=== PATIENT | female | born 1990 | race American Indian/Alaskan Native ===

== ENCOUNTER 2017-01-29 21:21 | Emergency (ER) | payer OTHER ==
[2017-01-29 21:43] VITALS: BP 126/80
[2017-01-29] MEDS ORDERED: PROVENTIL IH ONE (21:47)
--- NOTE | 2017-01-30 01:02 | Emergency Department Report ---
HPI - General Chief Complaint: Adult Asthma Time Seen by Provider: 01/30/17 00:41 - HPI HPI: 26-year-old female presents today complaining of chest heaviness, shortness of breath that occurred at 0700 hrs. yesterday. Patient has history of asthma and states that this felt like her normal asthma exacerbation. Patient was given neb treatments in triage and reports symptomatic relief post medication. Denies fever, chills, nausea, vomiting, chest pain, shortness of breath, abdominal pain at this time. ED Past Medical Hx - Past Medical History Previous Medical History?: Yes Hx Asthma: Yes - Surgical History Past Surgical History?: Yes Additional Surgical History: - Social History Smoking Status: Never Smoker Substance Use Type: None - Medications Home Medications: Home Medications Medication Instructions Recorded Confirmed Last Taken Type Prednisone 20 mg PO QDAY #3 tablet 10/14/13 Unknown Rx Azithromycin [Zithromax Z-HORTENCIA] 250 mg PO DAILY #6 tablet 11/03/14 Unknown Rx Ibuprofen [Motrin] 600 mg PO Q8H PRN #30 tablet 02/24/15 Unknown Rx metroNIDAZOLE [Flagyl] 500 mg PO BID #20 tablet 02/24/15 Unknown Rx Pseudoephed/Cod/Guaifen 5 ml PO Q6H #1 bottle 08/13/15 Unknown Rx [Robitussin DAC 10-100-30Mg/5Ml] Azithromycin [Zithromax Z-HORTENCIA] 250 mg PO DAILY #6 tab 09/15/15 Unknown Rx Promethazine Dm [Phenergan Dm 5 ml PO Q6H PRN #120 ml 09/15/15 Unknown Rx 6.25/15 mg 5 ml] metroNIDAZOLE 0.75% [Vandazole 1 applicator VG QHS #1 tube 11/20/15 Unknown Rx 0.75% VAGINAL] Acetaminophen/Codeine [Tylenol 1 tab PO Q6H PRN #20 tab 11/29/15 Unknown Rx /Codeine # 3 tab] Nitrofurantoin [place]/M-Cryst 100 mg PO Q12HR #14 capsule 11/29/15 Unknown Rx [Macrobid CAP] Vit No.130/Iron/FA 1 each PO QDAY #30 tablet 11/29/15 Unknown Rx [ Tablet] ALBUTEROL Inhaler [ProAir HFA 2 puff IH QID PRN #1 inhalation 01/30/17 Unknown Rx Inhaler] Albuterol Sulfate [Albuterol 0.63% 0.63 mg IH Q4H PRN #25 neb 01/30/17 Unknown Rx NEBS] predniSONE [Deltasone] 20 mg PO TID #12 tab 01/30/17 Unknown Rx ED Review of Systems ROS: Stated complaint: ASTHMA Other details as noted in HPI Constitutional: denies: chills, fever, malaise Eyes: denies: eye pain ENT: denies: ear pain, throat pain, congestion Respiratory: shortness of breath, wheezing. denies: cough Cardiovascular: chest pain. denies: palpitations Endocrine: no symptoms reported Gastrointestinal: denies: abdominal pain, nausea, vomiting Neurological: denies: headache, weakness Physical Exam - Physical Exam Vital Signs: Vital Signs 01/29/17 01/29/17 01/29/17 21:36 21:51 22:01 Temperature 98.5 F Pulse Rate 95 H Pulse Rate [ 92 H 94 H Posterior Right Throughout] Respiratory 18 Rate Respiratory 16 18 Rate [Posterior Right Throughout] Blood Pressure 126/80 O2 Sat by Pulse 100 Oximetry Physical Exam: GENERAL: The patient is well-developed and well-nourished. Patient is in NAD. HEAD: Normocephalic. Atraumatic. EYES: PERRL. NOSE: Normal nasal mucosa with no nasal discharge. THROAT: No erythema, swelling or exudates. NECK: Supple, nontender, without lymphadenopathy. CHEST/LUNGS: Clear to auscultation throughout. No wheezing noted. HEART/CARDIOVASCULAR: Regular rate and rhythm. No murmurs, rubs or gallops. ABDOMEN: Abdomen is soft, nontender. Bowel sounds normoactive. No guarding or rebound tenderness. EXTREMITIES: Peripheral pulses intact. Capillary refill less than 2 seconds. NEURO: Alert and oriented x 3. Normal gait. ED Course Vital Signs 01/29/17 01/29/17 01/29/17 21:36 21:51 22:01 Temperature 98.5 F Pulse Rate 95 H Pulse Rate [ 92 H 94 H Posterior Right Throughout] Respiratory 18 Rate Respiratory 16 18 Rate [Posterior Right Throughout] Blood Pressure 126/80 O2 Sat by Pulse 100 Oximetry ED Medical Decision Making - Lab Data Vital Signs 01/29/17 01/29/17 01/29/17 21:36 21:51 22:01 Temperature 98.5 F Pulse Rate 95 H Pulse Rate [ 92 H 94 H Posterior Right Throughout] Respiratory 18 Rate Respiratory 16 18 Rate [Posterior Right Throughout] Blood Pressure 126/80 O2 Sat by Pulse 100 Oximetry - Medical Decision Making 26-year-old female presents today post asthma exacerbation. Patient admits to symptomatic relief post medication. Patient is in no acute distress at this time. She will be discharged home and is encouraged to follow up with a primary care provider. She will be sent home on albuterol neb treatment, albuterol inhaler and prednisone and is encouraged to return to the emergency room for any worsening symptoms. Critical care attestation.: If time is entered above; I have spent that time in minutes in the direct care of this critically ill patient, excluding procedure time. ED Disposition Clinical Impression: Asthma exacerbation Disposition: DISCHARGED TO HOME OR SELFCARE Is pt being admited?: No Does the pt Need Aspirin: No Condition: Stable Instructions: Asthma (ED) Additional Instructions: Follow-up with primary care provider. Return to the emergency department if symptoms worsen. Prescriptions: ALBUTEROL Inhaler [ProAir HFA Inhaler] 2 puff IH QID PRN #1 inhalation PRN Reason: Shortness Of Breath Albuterol Sulfate [Albuterol 0.63% NEBS] 0.63 mg IH Q4H PRN #25 neb PRN Reason: Shortness Of Breath predniSONE [Deltasone] 20 mg PO TID #12 tab Referrals: PRIMARY CARE, [Primary Care Provider] - 3-5 Days [facility] [Outside] - 3-5 Days Forms: Work/School Release Form(ED) Time of Disposition: 00:58
== END 2017-01-30 01:15 | disposition home or self-care (01) ==
LOC: ED 21:21
DX: J45.901 Unspecified asthma with (acute) exacerbation (principal)
CPT/HCPCS: 94640

== ENCOUNTER 2017-02-24 22:29 | Emergency (ER) | payer OTHER ==
[2017-02-24 22:52] VITALS: BP 121/80
[2017-02-25] MEDS ORDERED: DUONEB 0.5 MG-3 MG/3 ML SOLN IH ONE ×2 (03:49→05:10)
[2017-02-25] MEDS ORDERED: DECADRON IM ONE (04:48)
--- NOTE | 2017-02-25 05:59 | XRay Report ---
FINAL REPORT PROCEDURE: XR CHEST ROUTINE 2V TECHNIQUE: PA and lateral chest radiographs were obtained. CPT 70153 HISTORY: asthma COMPARISON: No prior studies are available for comparison. FINDINGS: Heart: Normal. Mediastinum/Vessels: Normal. Lungs/Pleural space: Normal. Bony thorax: No acute osseous abnormality. Other: IMPRESSION: Normal examination.
--- NOTE | 2017-02-25 06:37 | Emergency Department Report ---
ED Asthma HPI - General Chief Complaint: Adult Asthma Stated Complaint: ASTHMA/CHEST PAIN/DIZZINESS Source: patient Mode of arrival: Ambulatory Limitations: No Limitations - History of Present Illness Initial Comments: 26 year old female presents to ED with wheezing, chest tightness just prior to arrival. patient has history of asthma and states she is out of her albuterol. patient is stable, neurologically intact and in no acute distress. MD Complaint: "asthma attack", wheezing -: Gradual Asthma History: childhood onset, history of prior ED visit Severity: mild Context: ran out of meds, allergen exposure Associated Symptoms: chest pain (tightness). denies: productive cough, fever, leg edema, syncope - Related Data Current Asthma Therapy: inhaled bronchodilator Previous Rx's Medication Instructions Recorded Last Taken Type ALBUTEROL Inhaler [ProAir HFA 2 puff IH QID PRN #1 inhalation 01/30/17 1 Day Ago Rx Inhaler] Albuterol Sulfate [Albuterol 0.63% 0.63 mg IH Q4H PRN #25 neb 02/25/17 Unknown Rx NEBS] methylPREDNISolone [Medrol] 4 mg PO QDAY #1 tab.ds.pk 02/25/17 Unknown Rx Allergies Allergy/AdvReac Type Severity Reaction Status Date / Time amoxicillin [Amoxicillin] Allergy Swelling Verified 10/14/13 14:56 iodine Allergy Itching Verified 10/14/13 14:56 latex Allergy Hives Verified 10/14/13 14:56 peanut oil Allergy Hives Verified 02/24/17 22:49 seafood Allergy Itching Uncoded 10/14/13 14:56 ED Review of Systems ROS: Stated complaint: ASTHMA/CHEST PAIN/DIZZINESS Other details as noted in HPI Constitutional: denies: chills, fever Eyes: denies: eye pain, eye discharge, vision change ENT: denies: ear pain, throat pain Respiratory: shortness of breath, wheezing. denies: cough Cardiovascular: chest pain (tightness). denies: palpitations Endocrine: no symptoms reported Gastrointestinal: denies: abdominal pain, nausea, diarrhea Genitourinary: denies: urgency, dysuria, discharge Musculoskeletal: denies: back pain, joint swelling, arthralgia Skin: denies: rash, lesions Neurological: denies: headache, weakness, paresthesias Psychiatric: denies: anxiety, depression Hematological/Lymphatic: denies: easy bleeding, easy bruising ED Past Medical Hx - Past Medical History Previous Medical History?: Yes Hx Asthma: Yes - Surgical History Past Surgical History?: Yes Additional Surgical History: - Social History Smoking Status: Never Smoker - Medications Home Medications: Home Medications Medication Instructions Recorded Confirmed Last Taken Type ALBUTEROL Inhaler [ProAir HFA 2 puff IH QID PRN #1 inhalation 01/30/17 02/25/17 1 Day Ago Rx Inhaler] Albuterol Sulfate [Albuterol 0.63% 0.63 mg IH Q4H PRN #25 neb 02/25/17 Unknown Rx NEBS] methylPREDNISolone [Medrol] 4 mg PO QDAY #1 tab.ds.pk 02/25/17 Unknown Rx ED Physical Exam - General Limitations: No Limitations General appearance: alert, in no apparent distress - Head Head exam: Present: atraumatic, normocephalic - Eye Eye exam: Present: normal appearance - ENT ENT exam: Present: mucous membranes moist - Neck Neck exam: Present: normal inspection - Respiratory Respiratory exam: Present: normal lung sounds bilaterally, wheezes, decreased breath sounds - Cardiovascular Cardiovascular Exam: Present: regular rate, normal rhythm. Absent: systolic murmur, diastolic murmur, rubs, gallop - GI/Abdominal GI/Abdominal exam: Present: soft, normal bowel sounds. Absent: distended, tenderness, guarding - Extremities Exam Extremities exam: Present: normal inspection, full ROM - Back Exam Back exam: Present: normal inspection, full ROM - Neurological Exam Neurological exam: Present: alert, oriented X3, normal gait - Psychiatric Psychiatric exam: Present: normal affect, normal mood - Skin Skin exam: Present: warm, dry, intact, normal color. Absent: rash ED Course Vital Signs 02/24/17 22:50 Temperature 98.6 F Pulse Rate 85 Respiratory 18 Rate Blood Pressure 121/80 O2 Sat by Pulse 100 Oximetry ED Medical Decision Making - Lab Data Lab Results 02/25/17 Range/Units 03:45 Urine HCG, Qual Negative (Negative) - Radiology Data Radiology results: report reviewed CXR Normal exam per radiologist. - Medical Decision Making 26 year old female presents to ED with asthma exacerbation. patient has normal breath sounds and no wheezing present after IM steroids and 2 rounds of duoneb breathing treatments. patient states she feels better and denies feeling short of breath or having chest tightness. patient is stable,neurologically intact and in no acute distress. Critical care attestation.: If time is entered above; I have spent that time in minutes in the direct care of this critically ill patient, excluding procedure time. ED Disposition Clinical Impression: Asthma exacerbation Disposition: DISCHARGED TO HOME OR SELFCARE Is pt being admited?: No Does the pt Need Aspirin: No Condition: Stable Instructions: Asthma (ED) Prescriptions: Albuterol Sulfate [Albuterol 0.63% NEBS] 0.63 mg IH Q4H PRN #25 neb PRN Reason: Shortness Of Breath methylPREDNISolone [Medrol] 4 mg PO QDAY #1 tab.ds.pk Referrals: PRIMARY CARE, [Primary Care Provider] - 3-5 Days Forms: Work/School Release Form(ED)
== END 2017-02-25 06:55 | disposition home or self-care (01) ==
LOC: ED 22:29
DX: J45.901 Unspecified asthma with (acute) exacerbation (principal); Z88.1 Allergy status to other antibiotic agents; Z91.040 Latex allergy status; Z91.010 Allergy to peanuts; Z91.013 Allergy to seafood
CPT/HCPCS: 71020; 81025; 94640; 96372; 99283; J1100

== ENCOUNTER 2017-03-09 17:32 | Emergency (ER) | payer OTHER ==
[2017-03-09 17:42] VITALS: BP 119/82
--- NOTE | 2017-03-09 18:34 | Emergency Department Report ---
Entered by ARNULFO CHICAS, acting as scribe for AURELIA GRANADOS PA. Burn HPI - History Stated Complaint: RT ARM BURN Chief Complaint: Burn/Smoke Inhalation Time Seen by Provider: 03/09/17 18:09 Duration of Burn: Today Burn Location: Arms (right flexor forearm) Burn Etiology: Accidental, Hot Object (hot water accidently spilled on right forearm at work) Pain: Severe (10/10) Tetanus Status: Unknown Symptoms:: Yes Myalgias (right forearm pain due to burn), Yes Able to Tolerate Fluids, No Blistering, No Malaise, No Fever, No Vomiting Other History: 27 y/o female with a PMHx of asthma and eczema c/o a burn to right forearm that began today. Patient states hot water accidentally spilled on her right arm while at work. Rates pain a 10/10 in severity. Notes pain is alleviated with ice and aggravated by movement. Allergic to amoxicillin and iodine. - Home Meds and Allergies Home Medications: Previous Rx's Medication Instructions Recorded Last Taken Type ALBUTEROL Inhaler [ProAir HFA 2 puff IH QID PRN #1 inhalation 01/30/17 1 Day Ago Rx Inhaler] Albuterol Sulfate [Albuterol 0.63% 0.63 mg IH Q4H PRN #25 neb 02/25/17 Unknown Rx NEBS] methylPREDNISolone [Medrol] 4 mg PO QDAY #1 tab.ds.pk 02/25/17 Unknown Rx Allergies/Adverse Reactions: Allergies Allergy/AdvReac Type Severity Reaction Status Date / Time amoxicillin [Amoxicillin] Allergy Swelling Verified 10/14/13 14:56 iodine Allergy Itching Verified 10/14/13 14:56 latex Allergy Hives Verified 10/14/13 14:56 peanut oil Allergy Hives Verified 02/24/17 22:49 seafood Allergy Itching Uncoded 10/14/13 14:56 ED Review of Systems ROS: Stated complaint: RT ARM BURN Other details as noted in HPI Comment: All other systems reviewed and negative Constitutional: denies: chills, fever Eyes: denies: eye pain, eye discharge, vision change ENT: denies: ear pain, throat pain Respiratory: denies: cough, shortness of breath, wheezing Cardiovascular: denies: chest pain, palpitations Endocrine: no symptoms reported Gastrointestinal: denies: abdominal pain, nausea, diarrhea Genitourinary: denies: urgency, dysuria, discharge Musculoskeletal: denies: back pain, joint swelling, arthralgia Skin: other (1st degree burn on right flexor forearm with no blistering present) . denies: rash, lesions Neurological: denies: headache, weakness, paresthesias Psychiatric: denies: anxiety, depression Hematological/Lymphatic: denies: easy bleeding, easy bruising ED Past Medical Hx - Past Medical History Previous Medical History?: Yes Hx Asthma: Yes Additional medical history: Eczema - Surgical History Past Surgical History?: Yes Additional Surgical History: - Social History Smoking Status: Never Smoker Substance Use Type: Non Opiate Pain - Medications Home Medications: Home Medications Medication Instructions Recorded Confirmed Last Taken Type ALBUTEROL Inhaler [ProAir HFA 2 puff IH QID PRN #1 inhalation 01/30/17 02/25/17 1 Day Ago Rx Inhaler] Albuterol Sulfate [Albuterol 0.63% 0.63 mg IH Q4H PRN #25 neb 02/25/17 Unknown Rx NEBS] methylPREDNISolone [Medrol] 4 mg PO QDAY #1 tab.ds.pk 02/25/17 Unknown Rx Exam - Exam General: Vital signs noted. General: No Limitations, alert, in no apparent distress HEENT: Yes Moist Mucous Membranes, No Conjuctival Injection, No Corneal Edema Skin: Yes Erythroderma (3x3 cm 1st degree burn on right flexor forearm with no blistering, neurovascularly intact distally), Yes Tenderness (tenderness to 3x3 1st degree burn on right forearm), No Blistering (surrounding burn on right forearm), No Edema Exam: Yes Normal Heart Sounds, No Respiratory Distress, No Sensory Deficits, No Musculoskeletal Pain Exam: -Neck exam: Normal inspection, lymphadenopathy. . - Cardiovascular: Regular rate, normal rhythm. No systolic murmur, diastolic murmur, rubs, or gallop. . - GI/Abdominal Exam: Abdomen is soft, normal bowel sounds. . - Extremities Exam: normal inspection. . - Back Exam: normal inspection. . - Neurological Exam: Present: alert, oriented X3. . -Psychiatric exam: Present: normal affect, normal mood ED Course Vital Signs 03/09/17 17:39 Temperature 98.6 F Pulse Rate 88 Respiratory 20 Rate Blood Pressure 119/82 O2 Sat by Pulse 100 Oximetry Critical care attestation.: If time is entered above; I have spent that time in minutes in the direct care of this critically ill patient, excluding procedure time. ED Disposition Clinical Impression: Burn Disposition: DISCHARGED TO HOME OR SELFCARE Is pt being admited?: No Condition: Stable Instructions: Superficial Burn (ED) Referrals: PRIMARY CARE,MD [Primary Care Provider] - 3-5 Days Forms: Work/School Release Form(ED) This documentation as recorded by the JUAN FRANCISCO virk JASMINE,accurately reflects the service I personally performed and the decisions made by me,AURELIA GRANADOS PA.
== END 2017-03-09 18:45 | disposition home or self-care (01) ==
LOC: ED 17:32
DX: T22.111A Burn of first degree of right forearm, initial encounter (principal); J45.909 Unspecified asthma, uncomplicated; Z91.040 Latex allergy status; Z91.013 Allergy to seafood; Z88.1 Allergy status to other antibiotic agents; Z91.010 Allergy to peanuts; X11.8XXA Contact with other hot tap-water, initial encounter; Y93.89 Activity, other specified; Y99.8 Other external cause status; Y92.89 Other specified places as the place of occurrence of the external cause
CPT/HCPCS: 99282

== ENCOUNTER 2017-09-16 18:37 | Emergency (ER) | payer OTHER ==
[2017-09-16 20:27] LABS: Hematocrit 38.9 % (30.3-42.9); Hemoglobin 12.6 gm/dl (10.1-14.3); Mean Corpuscular HGB Conc 32 % (30-34); Mean Corpuscular Hemoglobin 27 pg (28-32); Mean Corpuscular Volume 84 fl (79-97); Platelet Count 261 K/mm3 (140-440); Red Blood Count 4.63 M/mm3 (3.65-5.03); Red Cell Distribution Width 14.3 % (13.2-15.2)
[2017-09-16 20:45] LABS: Anion Gap 15 mmol/L; BUN/Creatinine Ratio 16; Blood Urea Nitrogen 11 mg/dL (7-17); Calcium 9.4 mg/dL (8.4-10.2); Carbon Dioxide 27 mmol/L (22-30); Chloride 101.4 mmol/L (98-107); Glucose 83 mg/dL (65-100); Potassium 3.7 mmol/L (3.6-5.0); Sodium 140 mmol/L (137-145)
[2017-09-16 21:31] LABS: Bacteria,Urine 1+ /HPF (Negative); Bilirubin,Urine NEG (Negative); Blood,Urine NEG (Negative); Ketones,Urine TR mg/dL (Negative); Leukocyte Esterase,Urine NEG (Negative); Mucus,Urine FEW /HPF; Nitrite,Urine NEG (Negative); Protein,Urine <15 mg/dL mg/dL (Negative)
[2017-09-17] MEDS ORDERED: TYLENOL PO ONE (03:45)
[2017-09-17] MEDS ORDERED: TYLENOL ONE (03:46)
[2017-09-17 08:03] VITALS: BP 117/69
--- NOTE | 2017-09-17 11:23 | Emergency Department Report ---
ED General Adult HPI - General Chief complaint: Dizziness Stated complaint: HEADACHE/DIZZINESS Time Seen by Provider: 09/17/17 10:49 Source: patient, RN notes reviewed Mode of arrival: Ambulatory Limitations: No Limitations - History of Present Illness Initial comments: This is a 27-year-old female who was previously unknown to this provider. She presents to the ER with complaint of fever at home to 101, lightheadedness, general weakness, congestion, nasal fullness and facial fullness, and headache. The headache is not sudden or thunderclap in nature. There is no neck pain or neck stiffness. There is no otalgia there is no tinnitus, there is positive nasal congestion, dry cough. There is no abdominal pain, there are no urinary symptoms. Her symptoms do not radiate anywhere, they were improved with acetaminophen prior to my arrival. -: Gradual Location: head, face Severity scale (0 -10): 0 Quality: aching Consistency: now resolved Improves with: medication Worsens with: movement Associated Symptoms: cough, fever/chills, headaches, loss of appetite, malaise, weakness. denies: confusion, chest pain, diaphoresis - Related Data Previous Rx's Medication Instructions Recorded Last Taken Type ALBUTEROL Inhaler [ProAir HFA 2 puff IH QID PRN #1 inhalation 01/30/17 1 Day Ago Rx Inhaler] ~02/24/17 Albuterol Sulfate [Albuterol 0.63% 0.63 mg IH Q4H PRN #25 neb 02/25/17 Unknown Rx NEBS] Acetaminophen [Tylenol Arthritis] 650 mg PO Q6HR PRN #30 tablet.er 09/17/17 Unknown Rx Ibuprofen [Motrin] 600 mg PO Q8H PRN #30 tablet 09/17/17 Unknown Rx Ondansetron [Zofran Odt] 4 mg PO Q8HR PRN #20 tab.rapdis 09/17/17 Unknown Rx Allergies Allergy/AdvReac Type Severity Reaction Status Date / Time amoxicillin [Amoxicillin] Allergy Swelling Verified 10/14/13 14:56 iodine Allergy Itching Verified 10/14/13 14:56 latex Allergy Hives Verified 10/14/13 14:56 peanut oil Allergy Hives Verified 02/24/17 22:49 seafood Allergy Itching Uncoded 10/14/13 14:56 ED Review of Systems ROS: Stated complaint: HEADACHE/DIZZINESS Other details as noted in HPI Constitutional: fever, malaise Eyes: denies: vision change ENT: denies: epistaxis Respiratory: cough Cardiovascular: as per HPI. denies: chest pain Gastrointestinal: denies: abdominal pain Genitourinary: denies: dysuria Musculoskeletal: arthralgia Skin: denies: lesions Neurological: headache, weakness ED Past Medical Hx - Past Medical History Hx Headaches / Migraines: Yes Hx Asthma: Yes Additional medical history: Eczema - Surgical History Additional Surgical History: - Social History Smoking Status: Never Smoker Substance Use Type: None - Medications Home Medications: Home Medications Medication Instructions Recorded Confirmed Last Taken Type ALBUTEROL Inhaler [ProAir HFA 2 puff IH QID PRN #1 inhalation 01/30/17 09/17/17 1 Day Ago Rx Inhaler] ~02/24/17 Albuterol Sulfate [Albuterol 0.63% 0.63 mg IH Q4H PRN #25 neb 02/25/17 09/17/17 Unknown Rx NEBS] Acetaminophen [Tylenol Arthritis] 650 mg PO Q6HR PRN #30 tablet.er 09/17/17 Unknown Rx Ibuprofen [Motrin] 600 mg PO Q8H PRN #30 tablet 09/17/17 Unknown Rx Ondansetron [Zofran Odt] 4 mg PO Q8HR PRN #20 tab.rapdis 09/17/17 Unknown Rx ED Physical Exam - General Limitations: No Limitations General appearance: alert, in no apparent distress - Head Head exam: Present: atraumatic, normocephalic - Eye Eye exam: Present: normal appearance, PERRL, EOMI, other (visual acuity intact to finger counting, color perception, reading at a close distance). Absent: nystagmus - ENT ENT exam: Present: normal exam, normal orophraynx, mucous membranes moist, TM's normal bilaterally, normal external ear exam, other (is no mastoid tenderness. There are no vesicles.) - Neck Neck exam: Present: normal inspection, full ROM - Respiratory Respiratory exam: Present: normal lung sounds bilaterally. Absent: respiratory distress - Cardiovascular Cardiovascular Exam: Present: regular rate, normal rhythm, normal heart sounds. Absent: bradycardia, tachycardia, irregular rhythm, systolic murmur, diastolic murmur, rubs, gallop - GI/Abdominal GI/Abdominal exam: Present: soft, normal bowel sounds. Absent: distended, tenderness, guarding, rebound, rigid, pulsatile mass - Extremities Exam Extremities exam: Present: normal inspection, full ROM, normal capillary refill. Absent: pedal edema, joint swelling, calf tenderness - Back Exam Back exam: Present: normal inspection, full ROM. Absent: tenderness, CVA tenderness (R), paraspinal tenderness, vertebral tenderness - Neurological Exam Neurological exam: Present: alert, oriented X3, CN II-XII intact, normal gait, other (Extraocular movements intact. Tongue midline. No facial droop. Facial sensation intact to light touch in the V1, V2, V3 distribution bilaterally. 5 and 5 strength in 4 extremities.. Sensation is intact to light touch in 4 extremities.). Absent: motor sensory deficit - Psychiatric Psychiatric exam: Present: normal affect, normal mood - Skin Skin exam: Present: warm, dry, intact, normal color. Absent: rash ED Course Vital Signs 09/16/17 09/17/17 09/17/17 19:27 03:34 03:50 Temperature 98.7 F 98.6 F Pulse Rate 104 H 96 H Respiratory 18 18 16 Rate Blood Pressure 106/73 116/87 Blood Pressure [Left] O2 Sat by Pulse 100 100 Oximetry 09/17/17 07:57 Temperature 97.9 F Pulse Rate 81 Respiratory 16 Rate Blood Pressure Blood Pressure 117/69 [Left] O2 Sat by Pulse 100 Oximetry - Reevaluation(s) Reevaluation #1: 09/17/17 11:28 Given the tachycardia has resolved, patient does not have a fever, I think myocarditis, pericarditis, endocarditis very unlikely. Patient does not have a cardiac murmur. ED Medical Decision Making - Lab Data Result diagrams: 09/16/17 20:04 09/16/17 20:04 Vital Signs 09/16/17 09/17/17 09/17/17 19:27 03:34 03:50 Temperature 98.7 F 98.6 F Pulse Rate 104 H 96 H Respiratory 18 18 16 Rate Blood Pressure 106/73 116/87 Blood Pressure [Left] O2 Sat by Pulse 100 100 Oximetry 09/17/17 07:57 Temperature 97.9 F Pulse Rate 81 Respiratory 16 Rate Blood Pressure Blood Pressure 117/69 [Left] O2 Sat by Pulse 100 Oximetry Lab Results 12/02/2609/16/17 09/16/17 Range/Units 20:04 20:04 20:47 WBC 5.0 (4.5-11.0) K/mm3 RBC 4.63 (3.65-5.03) M/mm3 Hgb 12.6 (10.1-14.3) gm/dl Hct 38.9 (30.3-42.9) % MCV 84 (79-97) fl MCH 27 L (28-32) pg MCHC 32 (30-34) % RDW 14.3 (13.2-15.2) % Plt Count 261 (140-440) K/mm3 Sodium 140 (137-145) mmol/L Potassium 3.7 (3.6-5.0) mmol/L Chloride 101.4 (98-107) mmol/L Carbon Dioxide 27 (22-30) mmol/L Anion Gap 15 mmol/L BUN 11 (7-17) mg/dL Creatinine 0.7 (0.7-1.2) mg/dL Estimated GFR > 60 ml/min BUN/Creatinine Ratio 16 % Glucose 83 (65-100) mg/dL Calcium 9.4 (8.4-10.2) mg/dL Urine Color Yellow (Yellow) Urine Turbidity Clear (Clear) Urine pH 5.0 (5.0-7.0) Ur Specific [place] 1.029 (1.003-1.030) Urine Protein <15 mg/dl (Negative) mg/dL Urine Glucose (UA) Neg (Negative) mg/dL Urine Ketones Tr (Negative) mg/dL Urine Blood Neg (Negative) Urine Nitrite Neg (Negative) Urine Bilirubin Neg (Negative) Urine Urobilinogen 2.0 (<2.0) mg/dL Ur Leukocyte Esterase Neg (Negative) Urine WBC (Auto) 1.0 (0.0-6.0) /HPF Urine RBC (Auto) 2.0 (0.0-6.0) /HPF U Epithel Cells (Auto) 1.0 (0-13.0) /HPF Urine Bacteria (Auto) 1+ (Negative) /HPF Urine Mucus Few /HPF Urine HCG, Qual Negative (Negative) - EKG Data -: EKG Interpreted by Ne EKG shows normal: sinus rhythm - EKG Data When compared to previous EKG there are: previous EKG unavailable 09/17/17 11:52 Normal sinus, 84 beats minute, normal axis, normal intervals, not morphologically consistent with ST elevation myocardial infarction - Medical Decision Making Differential diagnosis, including but not limited to: Viral syndrome, migraine headache, tension headache, cluster headache Assessment and plan: 27-year-old female with reported fever at home yesterday, at least sleeping in a stretcher, in no distress, clinically appears well. Has an unremarkable neurologic examination, has no neck pain or neck stiffness, has no obvious cranial nerve deficits, walks with a steady gait. Physical exam unremarkable, patient felt improved with conservative therapy, vital signs have improved, patient hematemesis stable and neurologically intact, based on this history and physical, I do not the patient requires advanced imaging, and maybe managed with conservative management. Critical care attestation.: If time is entered above; I have spent that time in minutes in the direct care of this critically ill patient, excluding procedure time. ED Disposition Clinical Impression: Viral syndrome Disposition: DC-01 TO HOME OR SELFCARE Is pt being admited?: No Does the pt Need Aspirin: No Condition: Good Additional Instructions: Take the pain medication, nausea medication as needed/directed. Follow up with a primary care doctor within the next week. Drink plenty of fluids. Return to the ER right away with new pain, worsened pain, migration of pain, fevers, chills, lethargy, irritability, projectile vomiting, change in mental status, confusion, inability to tolerate liquid feeds. Prescriptions: Acetaminophen [Tylenol Arthritis] 650 mg PO Q6HR PRN #30 tablet.er PRN Reason: Pain Ibuprofen [Motrin] 600 mg PO Q8H PRN #30 tablet PRN Reason: Pain Ondansetron [Zofran Odt] 4 mg PO Q8HR PRN #20 tab.rapdis PRN Reason: Nausea Referrals: PRIMARY CARE, [Primary Care Provider] - 3-5 Days STEVE VENEGAS MD [Staff Physician] - 3-5 Days [facility] [Provider Group] - 3-5 Days Forms: Work/School Release Form(ED)
== END 2017-09-17 12:03 | disposition home or self-care (01) ==
LOC: ED 18:37
DX: B34.9 Viral infection, unspecified (principal); G43.909 Migraine, unspecified, not intractable, without status migrainosus; Z88.8 Allergy status to other drugs, medicaments and biological substances; Z88.1 Allergy status to other antibiotic agents; Z91.040 Latex allergy status; Z91.013 Allergy to seafood
CPT/HCPCS: 36415; 80048; 81001; 81025; 85027; 93005; 93010; 99283

== ENCOUNTER 2017-11-22 23:47 | Emergency (ER) | payer OTHER ==
--- NOTE | 2017-11-23 04:19 | Emergency Department Report ---
ED Abdominal Pain HPI - General Chief Complaint: Extremity Injury, Lower Stated Complaint: RIGHT LEG PAIN Time Seen by Provider: 11/23/17 03:06 Source: patient Mode of arrival: Ambulatory Limitations: No Limitations - History of Present Illness Initial Comments: 27-year-old female past medical history asthma, headaches, eczema presents with complaint of right thigh pain. Patient states yesterday while walking she may have strained her right anterior thigh. Denies any falls denies any nausea vomiting fever chills difficulty with urination or defecation. Denies any diffuse body aches. States that her right thigh feels tight with hip abduction. Ambulatory without assistance. Denies any direct trauma. Denies any groin bulging or obvious hernias. MD Complaint: abdominal pain Onset/Timin -: days(s) Severity scale (0 -10): 4 Quality: aching, dull Worsens With: movement Associated Symptoms: denies other symptoms - Related Data Previous Rx's Medication Instructions Recorded Last Taken Type ALBUTEROL Inhaler [ProAir HFA 2 puff IH QID PRN #1 inhalation 01/30/17 1 Day Ago Rx Inhaler] ~02/24/17 Albuterol Sulfate [Albuterol 0.63% 0.63 mg IH Q4H PRN #25 neb 02/25/17 Unknown Rx NEBS] Acetaminophen [Tylenol Arthritis] 650 mg PO Q6HR PRN #30 tablet.er 09/17/17 Unknown Rx Ibuprofen [Motrin] 600 mg PO Q8H PRN #30 tablet 09/17/17 Unknown Rx Ondansetron [Zofran Odt] 4 mg PO Q8HR PRN #20 tab.rapdis 09/17/17 Unknown Rx Cyclobenzaprine [Flexeril] 10 mg PO TID PRN #12 tablet 11/23/17 Unknown Rx Ibuprofen [Motrin] 600 mg PO Q8H PRN #30 tablet 11/23/17 Unknown Rx Allergies Allergy/AdvReac Type Severity Reaction Status Date / Time amoxicillin [Amoxicillin] Allergy Swelling Verified 10/14/13 14:56 iodine Allergy Itching Verified 10/14/13 14:56 latex Allergy Hives Verified 10/14/13 14:56 peanut oil Allergy Hives Verified 02/24/17 22:49 seafood Allergy Itching Uncoded 10/14/13 14:56 ED Review of Systems ROS: Stated complaint: RIGHT LEG PAIN Other details as noted in HPI Constitutional: denies: chills, fever Eyes: denies: eye pain, eye discharge, vision change ENT: denies: ear pain, throat pain Respiratory: denies: cough, shortness of breath, wheezing Cardiovascular: denies: chest pain, palpitations Endocrine: no symptoms reported Gastrointestinal: denies: abdominal pain, nausea, diarrhea Genitourinary: denies: urgency, dysuria, discharge Musculoskeletal: as per HPI. denies: back pain, joint swelling, arthralgia Skin: denies: rash, lesions Neurological: denies: headache, weakness, paresthesias Psychiatric: denies: anxiety, depression Hematological/Lymphatic: denies: easy bleeding, easy bruising ED Past Medical Hx - Past Medical History Previous Medical History?: Yes Hx Headaches / Migraines: Yes Hx Asthma: Yes Additional medical history: Eczema - Surgical History Past Surgical History?: Yes Additional Surgical History: - Social History Smoking Status: Never Smoker Substance Use Type: None - Medications Home Medications: Home Medications Medication Instructions Recorded Confirmed Last Taken Type ALBUTEROL Inhaler [ProAir HFA 2 puff IH QID PRN #1 inhalation 01/30/17 09/17/17 1 Day Ago Rx Inhaler] ~02/24/17 Albuterol Sulfate [Albuterol 0.63% 0.63 mg IH Q4H PRN #25 neb 02/25/17 09/17/17 Unknown Rx NEBS] Acetaminophen [Tylenol Arthritis] 650 mg PO Q6HR PRN #30 tablet.er 09/17/17 Unknown Rx Ibuprofen [Motrin] 600 mg PO Q8H PRN #30 tablet 09/17/17 Unknown Rx Ondansetron [Zofran Odt] 4 mg PO Q8HR PRN #20 tab.rapdis 09/17/17 Unknown Rx Cyclobenzaprine [Flexeril] 10 mg PO TID PRN #12 tablet 11/23/17 Unknown Rx Ibuprofen [Motrin] 600 mg PO Q8H PRN #30 tablet 11/23/17 Unknown Rx ED Physical Exam - General Limitations: No Limitations General appearance: alert, in no apparent distress - Head Head exam: Present: atraumatic, normocephalic - Eye Eye exam: Present: normal appearance, PERRL, EOMI - ENT ENT exam: Present: mucous membranes moist - Neck Neck exam: Present: normal inspection - Respiratory Respiratory exam: Present: normal lung sounds bilaterally. Absent: respiratory distress - Cardiovascular Cardiovascular Exam: Present: regular rate, normal rhythm. Absent: systolic murmur, diastolic murmur, rubs, gallop - GI/Abdominal GI/Abdominal exam: Present: soft, normal bowel sounds - Extremities Exam Extremities exam: Present: normal inspection - Expanded Lower Extremity Exam Right Hip exam: Present: normal inspection, full ROM Upper Leg exam: Present: normal inspection, full ROM (hip abduction and adduction internal and external rotation clinically intact on exam hip flexion and extension intact) Knee exam: Present: normal inspection, full ROM Lower Leg exam: Present: normal inspection, full ROM Ankle exam: Present: normal inspection, full ROM Foot/Toe exam: Present: normal inspection, full ROM Neuro vascular tendon exam: Present: no vascular compromise (distal dorsalis pedis and posterior tibial pulses strong to palpation) - Back Exam Back exam: Present: normal inspection - Neurological Exam Neurological exam: Present: alert, oriented X3, CN II-XII intact, normal gait - Psychiatric Psychiatric exam: Present: normal affect, normal mood - Skin Skin exam: Present: warm, dry, intact, normal color. Absent: rash ED Course Vital Signs 11/23/17 00:16 Temperature 98.3 F Pulse Rate 89 Respiratory 18 Rate Blood Pressure 111/76 O2 Sat by Pulse 99 Oximetry ED Medical Decision Making - Medical Decision Making A/P: Right groin strain 1-clinical signs of femoral hernia or inguinal hernia on clinical exam 2-patient is ambulatory without assistance strength 5 out of 5 right lower extremity 3-educated patient on signs and symptoms of femoral hernias and advised her to return if she notices any bulging in her right groin with associated severe sharp pain. Patient stated she understood my instructions. 4- trial of Motrin and Flexeril when necessary Critical care attestation.: If time is entered above; I have spent that time in minutes in the direct care of this critically ill patient, excluding procedure time. ED Disposition Clinical Impression: Strain of muscle of right groin region Disposition: DC- TO HOME OR SELFCARE Is pt being admited?: No Does the pt Need Aspirin: No Condition: Stable Instructions: Groin Strain (ED), Groin Pain (ED) Prescriptions: Cyclobenzaprine [Flexeril] 10 mg PO TID PRN #12 tablet PRN Reason: Muscle Spasm Ibuprofen [Motrin] 600 mg PO Q8H PRN #30 tablet PRN Reason: Pain Referrals: [facility] [Outside] - 3-5 Days [facility] [Outside] - 3-5 Days Forms: Accompanied Note, Work/School Release Form(ED) Time of Disposition: 04:18
[2017-11-23 04:36] VITALS: BP 114/77
== END 2017-11-23 04:36 | disposition home or self-care (01) ==
LOC: ED 23:47
DX: S39.011A Strain of muscle, fascia and tendon of abdomen, initial encounter (principal); G43.909 Migraine, unspecified, not intractable, without status migrainosus; J45.909 Unspecified asthma, uncomplicated; Z88.1 Allergy status to other antibiotic agents; Z91.041 Radiographic dye allergy status; Z91.040 Latex allergy status; Z91.010 Allergy to peanuts; Z91.013 Allergy to seafood; X58.XXXA Exposure to other specified factors, initial encounter; Y93.89 Activity, other specified; Y92.89 Other specified places as the place of occurrence of the external cause; Y99.8 Other external cause status
CPT/HCPCS: 99282

== ENCOUNTER 2018-03-13 19:41 | Inpatient (IN) | payer OTHER ==
--- NOTE | 2018-03-13 20:21 | History and Physical Report ---
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 no EDC Calculations EDC Confirmation: 09/05/2018 Past History : 3 Premature Births: 1 Living Children: 0 Para: 1 Prev : 1 Spont. Ab: 1 # 1 Delivery date: 04/21/2010 Weeks Gestation: 32 Delivery type: Delivery location: [facility] Sex: Female Comments: pt was delivered by Dr.T Carter Baby had not compatable with life anomolies. . Pt states she had severe hyperemisis gravidarum # 2 Delivery date: 2014 Weeks Gestation: 4 Delivery type: SAB Comments: denies complications Past Medical History: Asthma: uses inhaler; has a PCP that she f/u with Past Medical History Abnormal PAP: negative RYAN Exposure: negative Infertility: negative Uterine Anomaly: negative Uterine Surgery (not C/S): negative Other Gynecologic Problems: negative Infection History Hx of STD: gonorrhea HIV Risk Eval: low risk Hepatitis B Risk Eval: low risk Personal hx. of genital herpes: no Partner hx. of genital herpes: no Rash, Viral, or Febrile illness since last LMP? no Varicella/Chicken Pox Status: Previous Disease TB Risk: no Infection History Comments: trich and chlamydia Genetic History Congenital Heart Defect: Mom: no Dad: unknown Danny Disease: Mom: no Dad: unknown Thalassemia Mom: no Dad: unknown Neural Tube Defect Mom: no Dad: unknown Down's Syndrome Mom: no Dad: unknown Kevin-Sachs Mom: no Dad: unknown Sickle Cell Disease/Trait Mom: no Dad: unknown Hemophilia Mom: no Dad: unknown Muscular Dystrophy Mom: no Dad: unknown Cystic Fibrosis Mom: no Dad: unknown [place] Chorea Mom: no Dad: unknown Mental Retardation Mom: no Dad: unknown Fragile X Mom: no Dad: unknown Other Genetic/Chromosomal Disorder Mom: no Dad: unknown Child w/other defect Mom: no Dad: unknown Enviromental Exposures Xray Exposure: no Medication, drug, or alcohol use since LMP: no Chemical/Other Exposure: no Exposure to Cat Liter: no Hx of Parvovirus (Fifth Disease): no Occupational Exposure to Children: none Current Allergies (reviewed today): * PENICILLAN (Severe) Past History - Obstetrical History Expected Date of Delivery: 09/05/18 Actual Gestation: 15 Week(s) 0 Day(s) : 3 Para: 1 Hx # Term Pregnancies: 1 Number of Pregnancies: 0 Spontaneous Abortions: 1 Induced : 0 Medications and Allergies Allergies Allergy/AdvReac Type Severity Reaction Status Date / Time amoxicillin [Amoxicillin] Allergy Hives Verified 03/14/18 06:06 latex Allergy Rash Verified 03/14/18 06:06 peanut oil Allergy Anaphylaxis Verified 03/14/18 06:06 iodine AdvReac Itching Verified 03/14/18 06:06 seafood Allergy Hives Uncoded 03/14/18 06:06 Home Medications Medication Instructions Recorded Confirmed Last Taken Type ALBUTEROL Inhaler [ProAir HFA 2 puff IH QID PRN #1 inhalation 01/30/17 03/14/18 03/12/18 Rx Inhaler] Albuterol Sulfate [Albuterol 0.63% 0.63 mg IH Q4H PRN #25 neb 02/25/17 03/14/18 03/12/18 Rx NEBS] - Physical Exam Breasts: Positive: deferred Cardiovascular: Regular rate Lungs: Positive: Normal air movement Abdomen: Positive: normal appearance, soft Results Result Diagrams: 03/13/18 22:48 All other labs normal. Assessment and Plan - Patient Problems (1) Intrauterine before 20 weeks of gestation Current Visit: Yes Status: Acute Plan to address problem: Patient advised on diagnosis about induction of labor. Discussed with patient the nature of 0 induction of labor at this gestational age and unpredictable length of time required. Discussed with the patient the nature used Cytotec preference using due my experience that has the least amount of side effects. Also discuss a possible Prostin and Cytotec was unsuccessful. Patient also recently had a consultation with Dr. Hammond about possible referral out for D and E if unsuccessful medical induction. (2) Asthma Current Visit: Yes Status: Chronic Qualifiers: Asthma severity: mild
[2018-03-13] MEDS ORDERED: ZOFRAN IV PRN (21:47)
[2018-03-13] MEDS ORDERED: MILK OF MAGNESIA PO PRN (21:47)
[2018-03-13] MEDS ORDERED: TYLENOL PO PRN (21:47)
[2018-03-13] MEDS ORDERED: COLACE PO PRN (21:47)
[2018-03-13] MEDS ORDERED: STADOL IV PRN (21:52)
[2018-03-13] MEDS ORDERED: AMBIEN PO PRN (21:53)
[2018-03-13] MEDS ORDERED: CYTOTEC ONE ×2 (22:54→23:06)
[2018-03-13 22:58] LABS: Basophils % (Auto) 0.7 % (0.0-1.8); Eosinophils # (Auto) 0.1 K/mm3 (0.0-0.4); Eosinophils % (Auto) 1.2 % (0.0-4.3); Hematocrit 34.8 % (30.3-42.9); Hemoglobin 11.3 gm/dl (10.1-14.3); Lymphocytes # (Auto) 1.7 K/mm3 (1.2-5.4); Lymphocytes % (Auto) 26.9 % (13.4-35.0); Mean Corpuscular HGB Conc 33 % (30-34); Mean Corpuscular Hemoglobin 28 pg (28-32); Mean Corpuscular Volume 86 fl (79-97); Monocytes # (Auto) 0.4 K/mm3 (0.0-0.8); Monocytes % (Auto) 5.8 % (0.0-7.3); Platelet Count 267 K/mm3 (140-440); Red Blood Count 4.07 M/mm3 (3.65-5.03); Red Cell Distribution Width 14.9 % (13.2-15.2)
[2018-03-13] MEDS: LACTATED RINGERS 1,000 ML IV SCH (23:04)
[2018-03-14] MEDS: LACTATED RINGERS 1,000 ML IV SCH ×2 (05:07→13:03)
[2018-03-14] MEDS: CYTOTEC VG SCH ×3 (06:01→12:05)
[2018-03-14] MEDS ORDERED: TYLENOL PO PRN (09:24)
--- NOTE | 2018-03-14 11:28 | Progress Note ---
Assessment and Plan patient comfortable s/p IV sedation. Next dose of cytotec due @ 1200. vaginal bleeding noted - anticipate vaginal delivery. - Patient Problems (1) Intrauterine before 20 weeks of gestation Current Visit: Yes Status: Acute Subjective - Subjective Date of service: 03/14/18 Principal diagnosis: IUFD @ 15 weeks, induction of labor Patient reports: loss of fluid, vaginal bleeding, other (cramping) Objective - Vital Signs Vital Signs: Vital Signs - 12hr 03/14/18 03/14/18 03/14/18 05:04 05:06 08:58 Temperature 99.3 F Pulse Rate 86 Respiratory 16 18 Rate Blood Pressure 107/58 Blood Pressure [Right] O2 Sat by Pulse Oximetry 03/14/18 03/14/18 03/14/18 08:59 09:12 09:13 Temperature 100.9 F H Pulse Rate 84 86 98 H Respiratory 18 Rate Blood Pressure 112/59 Blood Pressure 112/59 [Right] O2 Sat by Pulse 97 97 Oximetry 03/14/18 03/14/18 03/14/18 09:15 09:18 09:20 Temperature Pulse Rate 88 94 H 88 Respiratory Rate Blood Pressure Blood Pressure [Right] O2 Sat by Pulse 92 97 94 Oximetry 03/14/18 03/14/18 03/14/18 09:23 09:26 09:28 Temperature Pulse Rate 88 82 87 Respiratory 16 Rate Blood Pressure Blood Pressure [Right] O2 Sat by Pulse 96 94 95 Oximetry 03/14/18 03/14/18 03/14/18 09:33 09:38 09:39 Temperature Pulse Rate 82 81 84 Respiratory Rate Blood Pressure Blood Pressure [Right] O2 Sat by Pulse 94 94 94 Oximetry 03/14/18 03/14/18 03/14/18 09:43 09:46 09:48 Temperature Pulse Rate 80 87 Respiratory 16 Rate Blood Pressure Blood Pressure [Right] O2 Sat by Pulse 94 91 Oximetry 03/14/18 03/14/18 03/14/18 09:50 09:54 09:59 Temperature Pulse Rate 83 78 Respiratory Rate Blood Pressure Blood Pressure [Right] O2 Sat by Pulse 97 92 96 Oximetry 03/14/18 03/14/18 03/14/18 10:02 10:04 10:09 Temperature Pulse Rate 85 76 81 Respiratory Rate Blood Pressure Blood Pressure [Right] O2 Sat by Pulse 94 95 96 Oximetry 03/14/18 03/14/18 03/14/18 10:14 10:19 10:24 Temperature Pulse Rate 89 77 73 Respiratory Rate Blood Pressure Blood Pressure [Right] O2 Sat by Pulse 95 97 96 Oximetry 03/14/18 03/14/18 03/14/18 10:29 10:34 10:39 Temperature Pulse Rate 75 75 73 Respiratory Rate Blood Pressure Blood Pressure [Right] O2 Sat by Pulse 96 97 98 Oximetry 03/14/18 03/14/18 03/14/18 10:44 10:49 10:54 Temperature Pulse Rate 79 77 79 Respiratory Rate Blood Pressure Blood Pressure [Right] O2 Sat by Pulse 98 98 98 Oximetry 03/14/18 03/14/18 03/14/18 10:59 11:01 11:04 Temperature 97.8 F Pulse Rate 77 86 Respiratory Rate Blood Pressure Blood Pressure [Right] O2 Sat by Pulse 97 98 Oximetry 03/14/18 03/14/18 03/14/18 11:09 11:14 11:19 Temperature Pulse Rate 94 H 72 76 Respiratory Rate Blood Pressure Blood Pressure [Right] O2 Sat by Pulse 98 96 96 Oximetry 03/14/18 03/14/18 11:24 11:25 Temperature Pulse Rate 75 34 L Respiratory Rate Blood Pressure Blood Pressure [Right] O2 Sat by Pulse 97 82 L Oximetry - Exam Breasts: normal Cardiovascular: Regular rate Lungs: Clear to auscultation, Normal air movement Abdomen: Present: normal appearance, soft Vulva: both: normal Extremities: normal - Labs Labs: Laboratory Results - last 24 hr 03/13/18 03/13/18 22:48 22:48 WBC 6.3 RBC 4.07 Hgb 11.3 Hct 34.8 MCV 86 MCH 28 MCHC 33 RDW 14.9 Plt Count 267 Lymph % (Auto) 26.9 [place] % (Auto) 5.8 Eos % (Auto) 1.2 Baso % (Auto) 0.7 Lymph # 1.7 [place] # 0.4 Eos # 0.1 Baso # 0.0 Seg Neutrophils % 65.4 Seg Neutrophils # 4.1 Blood Type A POSITIVE Antibody Screen Negative
[2018-03-14] MEDS ORDERED: POLYCILLIN/NS 2 GM/100 ML 2 GM/100 ML BAG IV SCH (12:00)
--- NOTE | 2018-03-14 12:11 | Event Note ---
Date: 03/14/18 1200 dose of cytotec placed, parts noted in vagina. Continue current management.
[2018-03-14] MEDS ORDERED: CYTOTEC VG SCH ×2 (16:00→22:00)
--- NOTE | 2018-03-14 16:03 | Procedure Note ---
OB Delivery Note - Delivery Date of Delivery: 03/14/18 Residential Substance Abuse Counselor: YOUSIF CONCEPCION - Vaginal Delivery presentation: unknown Intrapartum events: other(please specify) (14 week demise) Delivery induction: misoprostol Delivery monitor: none Route of delivery: Delivery comments: 14 week IUFD delivered, fetus placed in warm blanket and given to mother for bonding. Placenta as not yet delivered. Bleeding scant. Dr. Wall notified. Plan for dose of cytotec now will continue to observe.
--- NOTE | 2018-03-14 19:28 | Event Note ---
Date: 03/14/18 Placenta del @ 1825, appears intact. Lochia scant. Patient allowed oob to shower. made aware.
[2018-03-14] MEDS ORDERED: PHENERGAN PO PRN (20:50)
[2018-03-14] MEDS ORDERED: BENADRYL PO PRN (20:50)
[2018-03-14] MEDS ORDERED: SODIUM CHLORIDE FLUSH SYRINGE 10 ML IV NR (20:50)
[2018-03-14] MEDS: MOTRIN PO SCH (21:39)
[2018-03-15] MEDS: MOTRIN PO SCH ×2 (03:33→11:00)
[2018-03-15] MEDS ORDERED: BOOSTRIX IM ONE (06:00)
[2018-03-15 10:31] LABS: Hematocrit 34.5 % (30.3-42.9); Hemoglobin 11.7 gm/dl (10.1-14.3)
--- NOTE | 2018-03-15 11:52 | Discharge Summary ---
Providers - Providers Date of Admission: 03/13/18 19:41 Date of discharge: 03/15/18 (desires d/c home today) Attending physician: NUHA RODRIGUEZ Primary care physician: NUHA RODRIGUEZ Hospitalization Reason for admission: delivery of 15 week IUFD Condition: Good Pertinent studies: post delivery H&H 11.7/34.5 Procedures: vaginal delivery of fetus and placenta Hospital course: uncomplicated vaginal delivery 15wk IUFD Disposition: ME-01 TO HOME OR SELFCARE - Discharge Diagnoses (1) Intrauterine before 20 weeks of gestation Status: Acute (2) Vaginal delivery Status: Acute Core Measure Documentation - Palliative Care Palliative Care/ Comfort Measures: Not Applicable - Core Measures Any of the following diagnoses?: none Exam - Constitutional Vitals: Temp Pulse Resp BP Pulse Ox 98.3 F 83 18 102/62 98 03/15/18 07:16 03/15/18 07:16 03/15/18 11:00 03/15/18 07:16 03/15/18 07:16 General appearance: Present: no acute distress, well-nourished - EENT Eyes: Present: PERRL ENT: hearing intact, clear oral mucosa - Neck Neck: Present: supple, normal ROM - Respiratory Respiratory effort: normal Respiratory: bilateral: CTA - Cardiovascular Heart Sounds: Present: S1 & S2. Absent: rub, click - Extremities Extremities: pulses symmetrical, No edema Peripheral Pulses: within normal limits - Abdominal General gastrointestinal: Present: soft, non-tender, non-distended, normal bowel sounds Female genitourinary: Present: normal - Integumentary Integumentary: Present: clear, warm, dry - Musculoskeletal Musculoskeletal: gait normal, strength equal bilaterally - Psychiatric Psychiatric: appropriate mood/affect, intact judgment & insight - Neurologic Neurologic: CNII-XII intact, moves all extremities - Additional findings Additional findings: Bleeding scant, no abd pain or cramping. VSSAF, H&H stable Plan Activity: no restrictions Diet: regular Follow up with: NUHA RODRIGUEZ MD [Primary Care Provider] - 04/13/18 (Please follow up in our office in 4 weeks. Call for any questions or concerns.)
[2018-03-15 15:06] VITALS: BP 126/85
== END 2018-03-15 15:00 | disposition home or self-care (01) | DRG 770 ==
LOC: LD 19:41 → OB 03-14 20:49
PROVIDERS: ADMIT Obstetrics & Gynecology; ATTEND Obstetrics & Gynecology
PROC: 10D17ZZ Extraction of Products of Conception, Retained, Via Natural or Artificial Opening (ICD-10-PCS; principal; 2018-03-14)
DX: O02.1 Missed abortion (principal); J45.909 Unspecified asthma, uncomplicated; O99.512 Diseases of the respiratory system complicating pregnancy, second trimester; Z37.1 Single stillbirth; Z3A.15 15 weeks gestation of pregnancy
CPT/HCPCS: 36415; 85014; 85018; 85025; 86850; 86900; 86901; 88305; J0595; J7120

== ENCOUNTER 2018-11-09 08:23 | Emergency (ER) | payer OTHER ==
[2018-11-09] MEDS ORDERED: FUL-GLO OP ONE (09:17)
[2018-11-09] MEDS ORDERED: TETRACAINE 0.5% OU ONE (09:18)
--- NOTE | 2018-11-09 09:19 | Emergency Department Report ---
Eye Injury/Foreign Body - HPI Duration: Today Eye Location: Left Severity: Mild Eye Symptoms: Eye Pain: Yes, Blurred Vision: No, Eye Redness: Yes, Grinding/Hammering Metal: No, Used Eye Protection: No, Contact Lens Use: No, Recalls Injury: Yes, Photophobia: Yes Other History: This is an 20-year-old -[place] female who presents with left eye pain since this morning. Patient states she was playing with her sibl ings and got hit in her left eye with unknown object. She reports sensitivity to light, clear discharge, and sharp pain. Patient states she did not apply any ice or anything to area. She denies grinding sensation, visual changes, or swelling. ED Review of Systems ROS: Stated complaint: LEFT EYE PAIN Other details as noted in HPI Constitutional: denies: chills, fever Eyes: eye pain (left), eye discharge (left). denies: vision change Respiratory: denies: cough, shortness of breath, wheezing Cardiovascular: denies: chest pain, palpitations Skin: denies: rash, lesions Neurological: denies: headache, weakness, paresthesias Psychiatric: denies: anxiety, depression ED Past Medical Hx - Past Medical History Previous Medical History?: Yes Hx Hypertension: No Hx Congestive Heart Failure: No Hx Diabetes: No Hx Deep Vein Thrombosis: No Hx Renal Disease: No Hx Sickle Cell Disease: No Hx Headaches / Migraines: Yes Hx Seizures: No Hx Asthma: Yes Hx COPD: No Hx HIV: No Additional medical history: Eczema - Surgical History Past Surgical History?: Yes Additional Surgical History: - Social History Smoking Status: Never Smoker Substance Use Type: None - Medications Home Medications: Home Medications Medication Instructions Recorded Confirmed Last Taken Type ALBUTEROL Inhaler (OR & NICU) 2 puff IH QID PRN #1 inhalation 01/30/17 03/14/18 03/12/18 Rx [ProAir HFA Inhaler] Albuterol Sulfate [Albuterol 0.63% 0.63 mg IH Q4H PRN #25 neb 02/25/17 03/14/18 03/12/18 Rx NEBS] Erythromycin [Erythromycin Ophth 10 applic OP Q4H #1 tube 11/09/18 Unknown Rx Oint] Eye Injury Exam - Exam General: Vital signs noted. No distress. Alert and acting appropriately. - Visual Acuity Right Vision Acuity Degree: 20/25 Eye Exam: Left Injection, Left Mucous Discharge, Left Fluorescein Uptake (verticle linear superficial, clue cells, no visualized foreign object), Left Fluorescein Uptake (slit lamp), Both EOMI, Neither Chemosis, Neither Abnormal Pupil, Neither Eye Foreign Body, Neither Lid Foreign Body, Neither Purulent Discharge, Neither Cell/Flare (slit lamp), Neither Corneal Edema, Neither Photophobia Left Vision Acuity Degree: 20/25 Bilateral Vision Acuity Degree: 20/13 ED Course Vital Signs 11/09/18 08:28 Temperature 98.7 F Pulse Rate 95 H Respiratory 16 Rate Blood Pressure 119/77 O2 Sat by Pulse 100 Oximetry ED Medical Decision Making - Medical Decision Making Patient was examined by me. Vitals are normal and patient is in no acute distress. Visual acuity, left 20/25, with Wood's lamp evaluation, suspicion of corneal abrasion on left. Start erythromycin ophthalmic ointment. Referral to ophthalmology for continued care. Patient discharged home in stable condition. Follow up with PCP in 2-3 days. Critical care attestation.: If time is entered above; I have spent that time in minutes in the direct care of this critically ill patient, excluding procedure time. ED Disposition Clinical Impression: Acute left eye pain Corneal abrasion, left Qualifiers: Encounter type: initial encounter Qualified Code(s): S05.02XA - Injury of conjunctiva and corneal abrasion without foreign body, left eye, initial encounter Disposition: - TO HOME OR SELFCARE Is pt being admited?: No Does the pt Need Aspirin: No Condition: Stable Instructions: Corneal Abrasion (ED) Additional Instructions: Follow-up with the principal technical specialist within 24 hours. Prescriptions: Erythromycin [Erythromycin Ophth Oint] 10 applic OP Q4H #1 tube Referrals: STEVE BREWSTER MD [Staff Physician] - 3-5 Days [facility] [Provider Group] - 3-5 Days [facility] [Provider Group] - 3-5 Days JOSE R KENYON MD [Staff Physician] - 3-5 Days Forms: Work/School Release Form(ED) Time of Disposition: 10:43
[2018-11-09 10:55] VITALS: BP 120/80
== END 2018-11-09 10:50 | disposition home or self-care (01) ==
LOC: ED 08:23
DX: S05.02XA Injury of conjunctiva and corneal abrasion without foreign body, left eye, initial encounter (principal); J45.909 Unspecified asthma, uncomplicated; Z88.1 Allergy status to other antibiotic agents; Z91.010 Allergy to peanuts; Z91.040 Latex allergy status; Z91.041 Radiographic dye allergy status; Z91.013 Allergy to seafood; W22.8XXA Striking against or struck by other objects, initial encounter; Y93.89 Activity, other specified; Y92.89 Other specified places as the place of occurrence of the external cause; Y99.8 Other external cause status

== ENCOUNTER 2019-03-01 14:34 | Emergency (ER) | payer OTHER ==
[2019-03-01] MEDS ORDERED: DUONEB *Not for PRN Use IH ONE (14:48)
--- NOTE | 2019-03-01 14:48 | Emergency Department Report ---
Blank Doc - Documentation Documentation: This is a 28-year-old female that presents with SOB with asthma exacerbation. This initial assessment/diagnostic orders/clinical plan/treatment(s) is/are subject to change based on patient's health status, clinical progression and re- assessment by fellow clinical providers in the ED. Further treatment and workup at subsequent clinical providers discretion. Patient/guardians urged not to elope from the ED as their condition may be serious if not clinically assessed and managed. Initial orders include: 1- Patient sent to [facility] for further evaluation and treatment 2- CXR 3- breathing treatment
[2019-03-01 14:51] VITALS: BP 130/69
[2019-03-01 15:37] LABS: Bilirubin,Urine NEG (Negative); Blood,Urine NEG (Negative); Color,Urine Yellow (Yellow); Mucus,Urine FEW /HPF; Protein,Urine <15 mg/dL mg/dL (Negative); Urobilinogen,Urine < 2.0 mg/dL (<2.0)
[2019-03-01 15:41] LABS: HCG Qualitative,Urine Negative (Negative)
--- NOTE | 2019-03-01 16:15 | XRay Report ---
PROCEDURE: XR CHEST ROUTINE 2V TECHNIQUE: PA and lateral chest radiographs were obtained. HISTORY: sob COMPARISONS: None. FINDINGS: Frontal and lateral views the chest were acquired. The heart is normal in size. The lungs a ppear clear. The pleura and mediastinum are within normal limits. IMPRESSION: No active disease in the chest This document is electronically signed by Gregory Francisco MD., Mar 01 2019 04:13:00 PM ET
--- NOTE | 2019-03-01 18:40 | Emergency Department Report ---
ED Asthma HPI - General Chief Complaint: Adult Asthma Stated Complaint: ASTHMA ATTACK Time Seen by Provider: 03/01/19 14:47 Source: patient Mode of arrival: Ambulatory Limitations: No Limitations - History of Present Illness Initial Comments: Pt is a 28 yo female who presents to the ED with c/o asthma exacerbation. She states for the last two weeks she has been experiencing SOB, wheezing, cough with clear production, and nasal congestion. She states she is having to use her nebulizer treatments twice a day and her inhaler 3 times a day. She states she has a hx of seasonal allergies and previously has used allergy shots and singulair. she is not on either treatment currently. She denies any fever. - Related Data Previous Rx's Medication Instructions Recorded Last Taken Type Erythromycin [Erythromycin Ophth 10 applic OP Q4H #1 tube 11/09/18 Unknown Rx Oint] ALBUTEROL Inhaler (OR & NICU) 2 puff IH QID PRN #1 inhalation 03/01/19 Unknown Rx [ProAir HFA Inhaler] Albuterol Sulfate [Albuterol 0.63% 0.63 mg IH Q4H PRN #1 box 03/01/19 Unknown Rx NEBS] Fluticasone [Flonase] 1 spray NS QDAY #1 bottle 03/01/19 Unknown Rx Montelukast [Singulair] 10 mg PO QPM #30 tablet 03/01/19 Unknown Rx Allergies Allergy/AdvReac Type Severity Reaction Status Date / Time amoxicillin [Amoxicillin] Allergy Hives Verified 03/14/18 06:06 latex Allergy Rash Verified 03/14/18 06:06 peanut oil Allergy Anaphylaxis Verified 03/14/18 06:06 iodine AdvReac Itching Verified 03/14/18 06:06 seafood Allergy Hives Uncoded 03/14/18 06:06 ED Review of Systems ROS: Stated complaint: ASTHMA ATTACK Other details as noted in HPI Comment: All other systems reviewed and negative ED Past Medical Hx - Past Medical History Previous Medical History?: Yes Hx Hypertension: No Hx Congestive Heart Failure: No Hx Diabetes: No Hx Deep Vein Thrombosis: No Hx Renal Disease: No Hx Sickle Cell Disease: No Hx Headaches / Migraines: Yes Hx Seizures: No Hx Asthma: Yes Hx COPD: No Hx HIV: No Additional medical history: Eczema - Surgical History Past Surgical History?: Yes Additional Surgical History: - Social History Smoking Status: Never Smoker Substance Use Type: None - Medications Home Medications: Home Medications Medication Instructions Recorded Confirmed Last Taken Type Erythromycin [Erythromycin Ophth 10 applic OP Q4H #1 tube 11/09/18 Unknown Rx Oint] ALBUTEROL Inhaler (OR & NICU) 2 puff IH QID PRN #1 inhalation 03/01/19 Unknown Rx [ProAir HFA Inhaler] Albuterol Sulfate [Albuterol 0.63% 0.63 mg IH Q4H PRN #1 box 03/01/19 Unknown Rx NEBS] Fluticasone [Flonase] 1 spray NS QDAY #1 bottle 03/01/19 Unknown Rx Montelukast [Singulair] 10 mg PO QPM #30 tablet 03/01/19 Unknown Rx ED Physical Exam - General Limitations: No Limitations General appearance: alert, in no apparent distress - Head Head exam: Present: atraumatic, normocephalic - Eye Eye exam: Present: normal appearance, PERRL - ENT ENT exam: Present: mucous membranes moist, other (pale boggy turbinates bilaterally) - Respiratory Respiratory exam: Present: normal lung sounds bilaterally, other (good air movement). Absent: respiratory distress, wheezes, rales, rhonchi, stridor, chest wall tenderness, accessory muscle use, decreased breath sounds, prolonged expiratory - Cardiovascular Cardiovascular Exam: Present: normal rhythm, tachycardia (mildly ), normal heart sounds. Absent: systolic murmur, diastolic murmur, rubs, gallop - Neurological Exam Neurological exam: Present: alert, oriented X3 - Psychiatric Psychiatric exam: Present: normal affect, normal mood - Skin Skin exam: Present: warm, dry, intact ED Course Vital Signs 03/01/19 03/01/19 14:47 18:48 Temperature 98.9 F Pulse Rate 105 H 94 H Respiratory 18 16 Rate Blood Pressure 130/69 O2 Sat by Pulse 99 100 Oximetry ED Medical Decision Making - Lab Data Lab Results 03/01/19 Range/Units Unknown Urine Color Yellow (Yellow) Urine Turbidity Clear (Clear) Urine pH 5.0 (5.0-7.0) Ur Specific Cable 1.027 (1.003-1.030) Urine Protein <15 mg/dl (Negative) mg/dL Urine Glucose (UA) Neg (Negative) mg/dL Urine Ketones Neg (Negative) mg/dL Urine Blood Neg (Negative) Urine Nitrite Neg (Negative) Urine Bilirubin Neg (Negative) Urine Urobilinogen < 2.0 (<2.0) mg/dL Ur Leukocyte Esterase Tr (Negative) Urine WBC (Auto) 2.0 (0.0-6.0) /HPF Urine RBC (Auto) 1.0 (0.0-6.0) /HPF U Epithel Cells (Auto) 2.0 (0-13.0) /HPF Urine Mucus Few /HPF Urine HCG, Qual Negative (Negative) - Radiology Data Radiology results: report reviewed PROCEDURE: XR CHEST ROUTINE 2V TECHNIQUE: PA and lateral chest radiographs were obtained. HISTORY: sob COMPARISONS: None. FINDINGS: Frontal and lateral views the chest were acquired. The heart is normal in size. The lungs appear clear. The pleura and mediastinum are within normal limits. IMPRESSION: No active disease in the chest This document is electronically signed by James Francisco MD., Mar 01 2019 04:13:00 PM ET Transcribed By: PATRICE Dictated By: JAMES FRANCISCO MD Electronically Authenticated By: JAMES FRANCISCO MD Signed Date/Time: 03/01/19 1514 - Medical Decision Making Pt is a 28 yo female who presents to the ED with c/o asthma exacerbation. She states for the last two weeks she has been experiencing SOB, wheezing, cough with clear production, and nasal congestion. She states she is having to use her nebulizer treatments twice a day and her inhaler 3 times a day. She states she has a hx of seasonal allergies and previously has used allergy shots and singulair. she is not on either treatment currently. She denies any fever. vitals are stable, pt given neb tx in triage, pt breath sounds are clear with no w/r/r, good air movement. pt given refill of neb solution and inhaler. pt given prescription for flonase and singulair. advised pt to follow up with PCP in the next 2-3 days for reevaluation and medication adjustments. return to the emergency room immediately for any new or worsening symptoms. Critical care attestation.: If time is entered above; I have spent that time in minutes in the direct care of this critically ill patient, excluding procedure time. ED Disposition Clinical Impression: Seasonal allergies Asthma exacerbation Qualifiers: Asthma severity: mild Asthma persistence: intermittent Qualified Code(s): J45.21 - Mild intermittent asthma with (acute) exacerbation Allergic rhinitis Qualifiers: Allergic rhinitis trigger: unspecified Allergic rhinitis seasonality: seasonal Qualified Code(s): J30.2 - Other seasonal allergic rhinitis Disposition: DC- TO HOME OR SELFCARE Is pt being admited?: No Does the pt Need Aspirin: No Condition: Stable Instructions: Asthma (ED), Allergic Rhinitis (ED) Additional Instructions: Please use all medication as prescribed. Follow up with primary care doctor in the next 2-3 days. Return to the emergency room immediately for any new or worsening symptoms. Prescriptions: Albuterol Sulfate [Albuterol 0.63% NEBS] 0.63 mg IH Q4H PRN #1 box PRN Reason: Shortness Of Breath Fluticasone [Flonase] 1 spray NS QDAY #1 bottle ALBUTEROL Inhaler (OR & NICU) [ProAir HFA Inhaler] 2 puff IH QID PRN #1 inhalation PRN Reason: Shortness Of Breath Montelukast [Singulair] 10 mg PO QPM #30 tablet Referrals: [facility] [Other] - 2-3 Days Forms: Work/School Release Form(ED) Time of Disposition: 18:39 Print Language: CZECH
== END 2019-03-01 18:50 | disposition home or self-care (01) ==
LOC: ED 14:34
DX: J45.21 Mild intermittent asthma with (acute) exacerbation (principal); J30.2 Other seasonal allergic rhinitis; G43.909 Migraine, unspecified, not intractable, without status migrainosus; Z88.0 Allergy status to penicillin; Z91.010 Allergy to peanuts; Z91.013 Allergy to seafood; Z91.018 Allergy to other foods; Z91.040 Latex allergy status
CPT/HCPCS: 71046; 81001; 81025

== ENCOUNTER 2019-04-05 10:46 | Emergency (ER) | payer OTHER ==
[2019-04-05 11:04] VITALS: BP 126/77
--- NOTE | 2019-04-05 11:45 | Emergency Department Report ---
ED Rash HPI - HPI Chief Complaint: Skin Rash Stated Complaint: SPIDER BITE Time Seen by Provider: 04/05/19 11:43 Duration: 1 Day Location: Lower Extremities Suspected Cause: Plant Rash Symptoms: No Itching, No Facial Swelling, No Tongue/Oral Swelling, No Breathing Difficulties, No Choking Sensation, No Wheezing/Dyspnea, No Peeling, No Blistering, No Fever, No Lightheaded, No Malaise, No Myalgias Severity: mild Other History: INSECT BITE TO THIGH. ? TYPE OF BUG. OCCURED YESTERDAY. PT CO PAIN AT SITE ED Review of Systems ROS: Stated complaint: SPIDER BITE Other details as noted in HPI Comment: All other systems reviewed and negative ED Past Medical Hx - Past Medical History Previous Medical History?: Yes Hx Hypertension: No Hx Congestive Heart Failure: No Hx Diabetes: No Hx Deep Vein Thrombosis: No Hx Renal Disease: No Hx Sickle Cell Disease: No Hx Headaches / Migraines: Yes Hx Seizures: No Hx Asthma: Yes Hx COPD: No Hx HIV: No Additional medical history: Eczema - Surgical History Past Surgical History?: Yes Additional Surgical History: - Social History Smoking Status: Never Smoker Substance Use Type: None - Medications Home Medications: Home Medications Medication Instructions Recorded Confirmed Last Taken Type Erythromycin [Erythromycin Ophth 10 applic OP Q4H #1 tube 11/09/18 Unknown Rx Oint] ALBUTEROL Inhaler (OR & NICU) 2 puff IH QID PRN #1 inhalation 03/01/19 Unknown Rx [ProAir HFA Inhaler] Albuterol Sulfate [Albuterol 0.63% 0.63 mg IH Q4H PRN #1 box 03/01/19 Unknown Rx NEBS] Fluticasone [Flonase] 1 spray NS QDAY #1 bottle 03/01/19 Unknown Rx Montelukast [Singulair] 10 mg PO QPM #30 tablet 03/01/19 Unknown Rx Cetirizine HCl [ZyrTEC] 10 mg PO DAILY #30 capsule 04/05/19 Unknown Rx Rash Exam - Exam General: Vital signs noted. No distress. Alert and acting appropriately. WDWN patient in NAD VS per RN flow sheet Alert and oriented to person, place and time. S1-S2. No S3 or S4. No systolic or diastolic murmur. No JVD. No pitting edema. Lungs clear to auscultation bilaterally anteriorly and posteriorly. Abdomen soft nontender bowel sounds X4 Moves all extremities well. Mood and affect appropriate. RLE THIGH INSECT BITE RED, NO ABSCESS, LOCAL INFLAMMATION ONLY AMBULATORY ED Course Vital Signs 04/05/19 11:02 Temperature 98.5 F Pulse Rate 90 Respiratory 16 Rate Blood Pressure 126/77 O2 Sat by Pulse 97 Oximetry ED Medical Decision Making - Medical Decision Making SIMPLE INSECT BITE NO ABSCESS NO CELLULITIS AMBULATORY VSS ABC INTACT PT EDUCATED ON CARE DC HOME WITH PCP FOLLOW UP Vital Signs 04/05/19 11:02 Temperature 98.5 F Pulse Rate 90 Respiratory 16 Rate Blood Pressure 126/77 O2 Sat by Pulse 97 Oximetry Critical care attestation.: If time is entered above; I have spent that time in minutes in the direct care of this critically ill patient, excluding procedure time. ED Disposition Clinical Impression: Insect bite Disposition: DC-01 TO HOME OR SELFCARE Is pt being admited?: No Does the pt Need Aspirin: No Condition: Stable Instructions: Insect Bite or Sting (ED) Additional Instructions: DIET TOLERATED MEDS ORDERED TODAY IN ER FOLLOW INSTRUCTIONS ON THE BOTTLE FOLLOW UP PCP WITHIN 48 HOURS TO ENSURE YOU ARE GETTING BETTER ACTIVITY TOLERATED MOTRIN OR TYLENOL FOR PAIN OR FEVER RETURN TO THE ER FOR WORSENING SYMPTOMS NOT RELIEVED BY YOUR MEDICATIONS. Prescriptions: Cetirizine HCl [ZyrTEC] 10 mg PO DAILY #30 capsule Referrals: [facility] [Outside] - 3-5 Days Time of Disposition: 11:44
== END 2019-04-05 11:56 | disposition home or self-care (01) ==
LOC: ED 10:46
DX: S70.361A Insect bite (nonvenomous), right thigh, initial encounter (principal); G43.909 Migraine, unspecified, not intractable, without status migrainosus; Z88.1 Allergy status to other antibiotic agents; Z91.010 Allergy to peanuts; Z91.013 Allergy to seafood; Z91.040 Latex allergy status; W57.XXXA Bitten or stung by nonvenomous insect and other nonvenomous arthropods, initial encounter; Y93.89 Activity, other specified; Y92.89 Other specified places as the place of occurrence of the external cause; Y99.8 Other external cause status
CPT/HCPCS: 99282

== ENCOUNTER 2019-07-09 12:25 | Emergency (ER) | payer OTHER ==
[2019-07-09] MEDS ORDERED: IPRATROPIUM/ALBUTEROL SULFATE 3 ML AMPUL.NEB IH ONE (12:40)
--- NOTE | 2019-07-09 12:42 | Event Note ---
ED Screening Note Date of service: 07/09/19 Time: 12:38 ED Screening Note: This is a 29 y.o. F. that presents to the ER with chest pain and SOB since this morning. Patient states she used nebulizer without relief. PMH of asthma and seasonal allergies. - fever, chills, cough, sore throat, or congestion. This initial assessment/diagnostic orders/clinical plan/treatment(s) is/are subject to change based on patients health status, clinical progression and re- assessment by fellow clinical providers in the ED. Further treatment and workup at subsequent clinical providers discretion. Patient/guardian urged not to elope from the ED as their condition may be serious if not clinically assessed and managed. Initial orders include: CXR and EKG Duoneb
[2019-07-09] MEDS ORDERED: methylPREDNISolone Sod Succinate 125 MG/2 ML INJ IM ONE (13:01)
--- NOTE | 2019-07-09 13:02 | Emergency Department Report ---
Minor Respiratory - HPI Chief Complaint: Chest Pain Stated Complaint: CHEST PAIN/SOB Time Seen by Provider: 07/09/19 12:38 Duration: Today Pain Location: Chest, Other Severity: mild Minor Respiratory: Yes Able to Tolerate Fluids, No Rhinorrhea, No Sore Throat, No Ear Pain, No Cough, No Sick Contacts, No Hemoptysis, No Chest Pain Other History: 29 yo AA female with wheezing. She is out of her home nebs. No fever. no purulent sputum. ambulatory and nontoxic on exam. no pain ED Review of Systems ROS: Stated complaint: CHEST PAIN/SOB Other details as noted in HPI Comment: All other systems reviewed and negative ED Past Medical Hx - Past Medical History Previous Medical History?: Yes Hx Hypertension: No Hx Congestive Heart Failure: No Hx Diabetes: No Hx Deep Vein Thrombosis: No Hx Renal Disease: No Hx Sickle Cell Disease: No Hx Headaches / Migraines: Yes Hx Seizures: No Hx Asthma: Yes Hx COPD: No Hx HIV: No Additional medical history: Eczema - Surgical History Past Surgical History?: Yes Additional Surgical History: - Social History Smoking Status: Never Smoker Substance Use Type: None - Medications Home Medications: Home Medications Medication Instructions Recorded Confirmed Last Taken Type Cetirizine HCl [ZyrTEC] 10 mg PO DAILY #30 capsule 04/05/19 Unknown Rx ALBUTEROL NEB's [Proventil 0.083% 2.5 mg IH TID PRN #1 box 07/09/19 Unknown Rx NEBS] Albuterol Sulfate [Proair 90 mcg IH QID PRN #1 aer.pow.ba 07/09/19 Unknown Rx Respiclick] Cetirizine HCl [ZyrTEC] 10 mg PO DAILY #30 capsule 07/09/19 Unknown Rx Fluticasone [Flonase] 1 spray NS QDAY #1 bottle 07/09/19 Unknown Rx predniSONE [Deltasone] 20 mg PO DAILY #5 tablet 07/09/19 Unknown Rx Minor Respiratory Exam - Exam General: Vital signs noted. No distress. Alert and acting appropriately. HEENT: Yes Moist Mucous Membranes, No Pharyngeal Erythema, No Pharyngeal Exudates, No Rhinorrhea, No Conjuctival Injection, No Frontal Tenderness, No Maxillary Tenderness Ear: Neither TM Bulge, Neither TM Erythema, Neither EAC Pain, Neither EAC Discharge Neck: Yes Supple, No Adenopathy Lungs: Yes Good Air Exchange, Yes Wheezes, No Ronchi, No Stridor Heart: Yes Regular (100 ON EXAM GETTING DUONEB), No Murmur Abdomen: Yes Normal Bowel Sounds, No Tenderness, No Peritoneal Signs Skin: No Rash Neurologic: Alert and oriented, no deficits. Musculoskeletal: Unremarkable. ED Course Vital Signs 07/09/19 12:39 Temperature 98.4 F Pulse Rate 110 H Respiratory 20 Rate Blood Pressure 129/81 O2 Sat by Pulse 98 Oximetry ED Medical Decision Making - Medical Decision Making Vital Signs 07/09/19 12:39 Temperature 98.4 F Pulse Rate 110 H Respiratory 20 Rate Blood Pressure 129/81 O2 Sat by Pulse 98 Oximetry duoneb and solumedrol VSS no fever no purulent sputum dc home with dc plan of care and follow up with pcp - Differential Diagnosis ASTHMA AE W / WO INFECTION Critical care attestation.: If time is entered above; I have spent that time in minutes in the direct care of this critically ill patient, excluding procedure time. ED Disposition Clinical Impression: Asthma with acute exacerbation, Medication refill Disposition: PAT REG,NO TRIAGE Is pt being admited?: No Does the pt Need Aspirin: No Condition: Stable Instructions: Asthma (ED) Additional Instructions: HYDRATE WELL WITH WATER MEDS ORDERED TODAY FOLLOW UP WITH PCP REFERRAL BELOW Prescriptions: predniSONE [Deltasone] 20 mg PO DAILY #5 tablet Fluticasone [Flonase] 1 spray NS QDAY #1 bottle Albuterol Sulfate [Proair Respiclick] 90 mcg IH QID PRN #1 aer.pow.ba PRN Reason: Wheezing ALBUTEROL NEB's [Proventil 0.083% NEBS] 2.5 mg IH TID PRN #1 box PRN Reason: Wheezing Cetirizine HCl [ZyrTEC] 10 mg PO DAILY #30 capsule Referrals: DOLLY DAVENPORT MD [Staff Physician] - 3-5 Days Forms: Work/School Release Form(ED) Time of Disposition: 13:11
[2019-07-09 13:54] VITALS: BP 117/69
== END 2019-07-09 13:58 | disposition home or self-care (01) ==
LOC: ED 12:25
DX: J45.901 Unspecified asthma with (acute) exacerbation (principal); G43.909 Migraine, unspecified, not intractable, without status migrainosus; Z76.0 Encounter for issue of repeat prescription; Z79.899 Other long term (current) drug therapy; Z88.1 Allergy status to other antibiotic agents; Z91.040 Latex allergy status; Z91.010 Allergy to peanuts; Z91.041 Radiographic dye allergy status; Z91.013 Allergy to seafood
CPT/HCPCS: 94640; 96372; 99282; J2930